=== PATIENT | male | born 1995 | race Caucasian/White ===

== ENCOUNTER → 2020-07-06 | Outpatient (CLI) | payer BC | LOC: M PLALAB 12:12 | PROVIDERS: ATTEND Nurse Practitioner Family | DX: D35.2 Benign neoplasm of pituitary gland (principal) ==

== ENCOUNTER → 2021-09-15 | Outpatient (CLI) | payer BC | LOC: M PLALAB 10:05 | PROVIDERS: ATTEND Nurse Practitioner Family | DX: D35.2 Benign neoplasm of pituitary gland (principal) ==

== ENCOUNTER → 2024-06-08 | Outpatient (REF) | payer BC | LOC: M LAB REF 09:14 | PROVIDERS: ATTEND Physician Assistant Medical | DX: B34.9 Viral infection, unspecified (principal) ==